=== PATIENT | female | born 1955 | race Two or more races ===

== ENCOUNTER 2024-05-26 09:57 | Outpatient (RCR) | payer MEDICAID, SELFPAY | END 2024-05-29 23:59 | disposition home or self-care (01) | LOC: SCTC 09:57 | PROVIDERS: PCP Physician Assistant; Referring Provider Physician Assistant; Visit Provider Nurse Practitioner Family | DX: D50.9 Iron deficiency anemia, unspecified (principal); D69.6 Thrombocytopenia, unspecified; K29.70 Gastritis, unspecified, without bleeding; K64.9 Unspecified hemorrhoids; K57.92 Diverticulitis of intestine, part unspecified, without perforation or abscess without bleeding; R74.01 Elevation of levels of liver transaminase levels; E11.40 Type 2 diabetes mellitus with diabetic neuropathy, unspecified | CPT/HCPCS: 99212; G0463 ==

== ENCOUNTER 2024-06-29 07:43 | Outpatient (RCR) | payer MEDICAID, SELFPAY ==
[2024-06-29 09:27] LABS: Basophils % (Auto) 0 % (0-2.5); Eosinophils % (Auto) 1 % (0-10); Hematocrit 25.5 % (36.0-46.0); Immature Granulocytes % (Auto) 0 % (0-0); Lymphocytes # (Auto) 0.4 Thou/mm3 (1.0-4.8); Lymphocytes % (Auto) 26 % (10-50); Mean Corpuscular HGB Conc 28.2 g/dl (31.0-37.0); Mean Corpuscular Hemoglobin 21.3 pg (25.0-35.0); Mean Corpuscular Volume 75 fL (80-100); Monocytes # (Auto) 0.2 Thou/mm3 (0.0-0.8); Monocytes % (Auto) 9 % (0-12); Neutrophils # (Auto) 1.1 Thou/mm3 (1.8-7.7); Neutrophils % (Auto) 64 % (37-80); Nucleated Red Blood Cell % 0 /100 WBC (0); RDW Standard Deviation 46.8 fL (36.4-46.3); Red Blood Count 3.38 Miln/mm3 (4.00-5.20)
[2024-06-29 09:40] LABS: Hemoglobin 7.2 g/dL (12.0-16.0); Platelet Count 42 Thou/mm3 (140-440); White Blood Count 1.7 Thou/mm3 (3.6-11.0)
[2024-06-29 10:40] LABS: Slide Review Platelets confirmed
[2024-06-29 10:41] LABS: Path Review Blood Smear Sent to Pathologist
== END 2024-06-29 23:59 | disposition home or self-care (01) ==
LOC: SCTC 07:43
PROVIDERS: PCP Family Medicine; Referring Provider Nurse Practitioner Family; Visit Provider Nurse Practitioner Family
DX: D69.6 Thrombocytopenia, unspecified (principal); D50.9 Iron deficiency anemia, unspecified
CPT/HCPCS: 36430; 85025; 86850; 86900; 86901; 86923; 99212; J1439; J7050; P9016; G0463

== ENCOUNTER 2024-07-28 10:36 | Outpatient (RCR) | payer MEDICAID, SELFPAY ==
[2024-07-06 13:38] LABS: Basophils % (Auto) 0 % (0-2.5); Eosinophils # (Auto) 0.1 Thou/mm3 (0.0-0.5); Eosinophils % (Auto) 2 % (0-10); Hematocrit 31.6 % (36.0-46.0); Hemoglobin 9.2 g/dL (12.0-16.0); Immature Granulocytes % (Auto) 0 % (0-0); Immature Granulocytes Auto 0.01 Thou/mm3 (0.00-0.00); Lymphocytes # (Auto) 0.6 Thou/mm3 (1.0-4.8); Lymphocytes % (Auto) 19 % (10-50); Mean Corpuscular HGB Conc 29.1 g/dl (31.0-37.0); Mean Corpuscular Hemoglobin 23.8 pg (25.0-35.0); Mean Corpuscular Volume 82 fL (80-100); Monocytes # (Auto) 0.2 Thou/mm3 (0.0-0.8); Monocytes % (Auto) 7 % (0-12); Neutrophils # (Auto) 2.2 Thou/mm3 (1.8-7.7); Neutrophils % (Auto) 72 % (37-80); Nucleated Red Blood Cell % 0 /100 WBC (0); RDW Standard Deviation 50.3 fL (36.4-46.3); Red Blood Count 3.87 Miln/mm3 (4.00-5.20); White Blood Count 3.1 Thou/mm3 (3.6-11.0)
[2024-07-06 13:39] LABS: Platelet Count 49 Thou/mm3 (140-440)
[2024-07-06 16:04] LABS: Slide Review Platelets confirmed
== END 2024-07-29 23:59 | disposition home or self-care (01) ==
LOC: SCTC 10:36
PROVIDERS: Internal Medicine Hematology & Oncology; PCP Family Medicine; Referring Provider Family Medicine; Visit Provider Nurse Practitioner Family
DX: D69.6 Thrombocytopenia, unspecified (principal); D50.9 Iron deficiency anemia, unspecified
CPT/HCPCS: 85025; 96365; 96375; 99212; A4216; J1439; J2919; J3490; J7040; J7050; G0463

== ENCOUNTER 2024-09-28 15:00 | Outpatient (RCR) | payer MEDICAID, SELFPAY | END 2024-09-28 23:59 | disposition home or self-care (01) | LOC: SCTC 15:00 | PROVIDERS: PCP Physician Assistant; Referring Provider Family Medicine; Visit Provider Internal Medicine Hematology & Oncology | DX: D69.6 Thrombocytopenia, unspecified (principal); K29.70 Gastritis, unspecified, without bleeding; K64.9 Unspecified hemorrhoids; K57.92 Diverticulitis of intestine, part unspecified, without perforation or abscess without bleeding; D72.819 Decreased white blood cell count, unspecified | CPT/HCPCS: 99212; G0463 ==

== ENCOUNTER 2024-11-17 15:17 | Outpatient (RCR) | payer MEDICAID, SELFPAY | END 2024-11-29 23:59 | disposition home or self-care (01) | LOC: SCTC 15:17 | PROVIDERS: PCP Physician Assistant; Referring Provider Physician Assistant; Visit Provider Nurse Practitioner Family | DX: D69.6 Thrombocytopenia, unspecified (principal); K29.70 Gastritis, unspecified, without bleeding; K64.9 Unspecified hemorrhoids; K57.92 Diverticulitis of intestine, part unspecified, without perforation or abscess without bleeding; Z86.2 Personal history of diseases of the blood and blood-forming organs and certain disorders involving the immune mechanism; D72.819 Decreased white blood cell count, unspecified; R94.6 Abnormal results of thyroid function studies; E66.9 Obesity, unspecified | CPT/HCPCS: 99212; G0463 ==

== ENCOUNTER 2025-02-15 14:35 | Emergency (ER) | payer MEDICAID, SELFPAY ==
[2025-02-15] VITALS (16 sets, daily range): BP systolic 129–152; BP diastolic 65–96; PULSE 63–81; RESP 16–20; TEMP 36.7–37.2; O2SAT 94–100; BMI 36.0
--- NOTE | 2025-02-15 15:03 | EDNOTE_ITS ---
ED General RME/HPI General Chief complaint: General Adult/Misc Complain Stated complaint: NEED BLOOD TRANSFUSION Time Seen by Provider: 02/15/25 14:52 Arrival date/time: 02/15/25 14:35 CC: Fatigue heaviness in the legs HPI patient was sent from the cancer center for anemia , as the patient is feeling fatigued and heaviness which she typically states that this symptoms when she requires a transfusion. Patient has been transfused before she does not know why she has anemia or low platelets. Patient denies chest pain shortness of breath or difficulty breathing. Review the medical record show there is no specific reason for her pancytopenia. Related Data Home Medications ?Medication ?Instructions ?Recorded ?Confirmed ferrous sulfate 325 mg (65 mg 325 mg PO QDAY 09/06/21 07/04/23 iron) tablet (iron) hydrochlorothiazide 25 mg tablet 25 mg PO QAM 07/04/23 07/04/23 Previous Rx's ?Medication ?Instructions ?Recorded albuterol sulfate 90 mcg/actuation 2 puff inhalation Q 6H PRN 01/10/24 aerosol inhaler (Ventolin HFA) shortness of breath or wheezing #8.5 grams benzonatate 100 mg capsule 100 mg PO TID PRN cough #20 caps 01/10/24 Allergies Allergy/AdvReac Type Severity Reaction Status Date / Time No Known Allergies Allergy Verified 02/15/25 14:41 Past Medical History Past Medical History NEUROLOGIC: Negative Neurological Disorders or Seizures CARDIAC: Positive Cardiac Disorders and Hypertension; Negative Congestive Heart Failure RESPIRATORY: Negative Chronic Obstructive Pulmonary Disease (COPD) or Asthma GASTROINTESTINAL: Positive Gastrointestinal Disorders, Cirrhosis, Gastrointestinal Bleed, Diverticulitis and Obesity GENITOURINARY: Negative Genitourinary Disorders or Renal Disease REPRODUCTIVE: Positive Previous Pregnancies; Negative Pelvic Inflammatory Disease MUSCULOSKELETAL: Positive Musculoskeletal Disorders and Degenerative Disk Disease ENT: Positive Cataracts ENDOCRINE: Positive Diabetes Mellitus Type 2; Negative Endocrine Disorders or Diabetes Mellitus Type 1 HEMATOLOGIC: Positive Blood Disorders and Anemia; Negative Sickle Cell Disease PSYCHO/SOCIAL: Positive Anxiety OTHER HISTORY: Positive Hospitalization (Anemia) and Blood Transfusions; Negative Autoimmune Disease, Shingles, Blood Transfusion Reaction, Anesthesia Reactions, MRSA, Clostridium Difficile or Cancer Family History FAMILY HISTORY: Negative Family Psychiatric Problems, Family Respiratory Disorders, Family Cardiac Disorders, Family Gastrointestinal Problems, Family Cancer, Family Surgery or Family Anesthesia Reaction Surgical History SURGICAL: Positive Joint Replacement, Tubal Ligation and Section (4); Negative Cardiac Surgery, Endocrine Surgery, Ear Surgery, Abdominal Surgery or Nephrectomy Social History SMOKING STATUS: Never smoker SUBSTANCE USE: does not use ED Exam Narrative Physical exam: [General: Obese not in any acute distress Head normocephalic HEENT: Eyes pupils are PERRLA EOMs intact, conjunctiva is pink, mouth pink moist membranes uvula is midline. All other subsystems of HEENT are within acceptable limits Neck is supple nontender Chest equal chest rise nontender to palpation Respiratory: Clear to auscultation no wheezes crackles or rubs CV: Rate rhythm is regular no murmurs rubs or clicks Abdomen is distended secondary to body habitus soft nontender no masses positive bowel sounds all 4 quadrants Back: No CVA tenderness no spinous process tenderness from cervical spine thoracic and lumbar spine Skin: Intact no petechiae rash induration ulceration or crepitus Extremities: Moving all extremity against resistance cap refill less than 2 seconds neurosensory intact Neuro: Awake alert oriented x3 Glascow coma 15 no focal deficits] Course Quality Measures none Orders Category Date Time Status CBC Stat Lab 02/15/25 15:38 Completed CMP [Comprehensive Metabolic Panel] Stat Lab 02/15/25 15:38 Completed Path Review Blood Smear Stat Lab 02/15/25 15:38 Completed Type and Screen Stat Lab 02/15/25 15:38 Completed prbc [Red Blood Cells] Stat Lab 02/15/25 15:38 Completed Vital Signs Vital signs: Vital Signs Temperature 98.1 F 02/15/25 14:44 Pulse Rate 81 02/15/25 14:44 Respiratory Rate 18 02/15/25 14:44 Blood Pressure 135/76 H 02/15/25 14:44 Pulse Oximetry (%) 99 02/15/25 14:44 Oxygen Delivery Method Room Air 02/15/25 14:44 Discharge Plan Plan Patient Disposition: HOME (Self Care) Patient condition on transfer: Stable Prescriptions/Referrals Prescriptions/Med Rec: No Action ferrous sulfate [iron] 325 mg (65 mg iron) Tablet 325 mg PO QDAY hydrochlorothiazide 25 mg Tablet 25 mg PO QAM benzonatate 100 mg capsule 100 mg PO TID PRN (Reason: cough) Qty: 20 0RF albuterol sulfate [Ventolin HFA] 90 mcg/actuation HFA aerosol inhaler 2 puff inhalation Q6H PRN (Reason: shortness of breath or wheezing) Qty: 8.5 0RF Rx Instructions: w/ education Referrals: Dorcas Chacko PA-C [Primary Care Provider] - In 1 week Problem List Clinical Impression: Anemia Patient/Caregiver Discharge Instructions Education Materials: Anemia Additional Instructions: Follow-up with primary care doctor and med peds for further workup. Print Language: Afghan Stand Alone Forms: Cheryl Award Info., Work/School Release, Patient Portal Info Letter MICHELLE/MO Supervising Physician KRISTIE Supervising Physician: Arvind Rocha ENP [facility] Clinical Information Provided by: patient Medical Records reviewed [facility] Meds/Rx considered, not ordered None Labs/Rad/Tests considered, not ordered None Chronic Illness/Social Conditions Explain: Pancytopenia note: Patient states they have not found the source. The patient has received multiple transfusions of both platelets and PRBCs. Patient has been on iron in the past. History of cirrhosis
[2025-02-15 15:48] LABS: Basophils # (Auto) 0.0 Thou/mm3 (0.0-0.2); Basophils % (Auto) 0 % (0-2.5); Eosinophils # (Auto) 0.1 Thou/mm3 (0.0-0.5); Eosinophils % (Auto) 3 % (0-10); Hematocrit 24.4 % (36.0-46.0); Immature Granulocytes Auto 0.00 Thou/mm3 (0.00-0.00); Lymphocytes # (Auto) 0.5 Thou/mm3 (1.0-4.8); Lymphocytes % (Auto) 28 % (10-50); Mean Corpuscular HGB Conc 28.7 g/dl (31.0-37.0); Mean Corpuscular Hemoglobin 23.1 pg (25.0-35.0); Mean Corpuscular Volume 81 fL (80-100); Monocytes # (Auto) 0.3 Thou/mm3 (0.0-0.8); Monocytes % (Auto) 15 % (0-12); Neutrophils # (Auto) 1.0 Thou/mm3 (1.8-7.7); Neutrophils % (Auto) 54 % (37-80); Nucleated Red Blood Cell # 0.00 Thou/mm3 (0.00-0.00); Nucleated Red Blood Cell % 0 /100 WBC (0); RDW Standard Deviation 44.3 fL (36.4-46.3); Red Blood Count 3.03 Miln/mm3 (4.00-5.20); White Blood Count 1.9 Thou/mm3 (3.6-11.0)
[2025-02-15 16:04] LABS: Alanine Aminotransferase 17 U/L (10-49); Albumin, Serum 3.6 gm/dL (3.4-4.8); Albumin/Globulin Ratio 1.7 (1.2-2.2); Alkaline Phosphatase 138 U/L (46-116); Anion Gap 7 (7-16); Aspartate Amino Transferase 31 U/L (0-34); BUN/Creatinine Ratio 8 Ratio (12-20); Bilirubin,Total 0.6 mg/dL (0.3-1.2); Blood Urea Nitrogen < 5 mg/dL (9-23); Calcium 9.2 mg/dL (8.3-10.6); Calcium (Corrected) 9.5 mg/dL (8.5-10.1); Carbon Dioxide 25.1 mMol/L (20.0-31.0); Chloride 113 mMol/L (98-107); Creatinine (Component) 0.6 mg/dL (0.6-1.3); Estimated Creatinine Clearance 101.9 mL/min (>60); Globulin 2.1 gm/dL (2.3-3.5); Glucose 123 mg/dL (74-106); Osmolality,Calculated 286 (275-295); Potassium 4.2 mMol/L (3.4-5.1); Sodium 145 mMol/L (136-145); Total Protein 5.7 gm/dL (5.7-8.2); eGFR > 60 See Note
[2025-02-15 16:16] LABS: Hemoglobin 7.0 g/dL (12.0-16.0)
[2025-02-15 16:17] LABS: Platelet Count 43 Thou/mm3 (140-440)
[2025-02-15 16:33] LABS: Path Review Blood Smear Sent to Pathologist; Slide Review Platelets confirmed
--- NOTE | 2025-02-15 19:10 | PC.NURSE ---
report given to shift superintendent nurse
== END 2025-02-15 22:56 | disposition home or self-care (01) ==
PROVIDERS: Registered Nurse General Practice; Emergency Provider Emergency Medicine; PCP Physician Assistant
DX: D61.818 Other pancytopenia (principal)
CPT/HCPCS: 36415; 80053; 85025; 86850; 86900; 86901; 86923; 99283; P9016

== ENCOUNTER 2025-02-17 14:59 | Outpatient (RCR) | payer MEDICAID, SELFPAY | END 2025-02-28 23:59 | disposition home or self-care (01) | LOC: SCTC 14:59 | PROVIDERS: PCP Physician Assistant; Referring Provider Physician Assistant; Visit Provider Nurse Practitioner Family | DX: D69.6 Thrombocytopenia, unspecified (principal); D50.9 Iron deficiency anemia, unspecified; Z87.19 Personal history of other diseases of the digestive system; D72.819 Decreased white blood cell count, unspecified; R94.6 Abnormal results of thyroid function studies; E66.9 Obesity, unspecified; Z71.3 Dietary counseling and surveillance | CPT/HCPCS: 99212; G0463 ==

== ENCOUNTER 2025-03-17 13:16 | Outpatient (RCR) | payer MEDICAID, SELFPAY | END 2025-03-31 23:59 | disposition home or self-care (01) | LOC: SCTC 13:16 | PROVIDERS: PCP Physician Assistant; Referring Provider Physician Assistant; Visit Provider Nurse Practitioner Family | DX: D50.9 Iron deficiency anemia, unspecified (principal); D69.6 Thrombocytopenia, unspecified; Z87.19 Personal history of other diseases of the digestive system | CPT/HCPCS: 96365; 96375; 99212; J1756; J2919; J3490; J7040; A9270; G0463 ==